=== PATIENT | male | born 1955 | race Caucasian/White ===

== ENCOUNTER 2021-04-26 17:41 | Emergency (ER) | payer MEDICARE, BC ==
[~2021-04-26] VITALS: Ht 177.8 cm; Wt 75.0 kg
[~2021-04-26 17:41] MED LIST: ZES10T PO
[2021-04-26 18:03] VITALS: BP 158/99
== END 2021-04-26 21:11 | disposition home or self-care (01) ==
LOC: ER 17:43
DX: G89.29 Other chronic pain (principal); M25.511 Pain in right shoulder
CPT/HCPCS: 73030; 99283